=== PATIENT | male | born 1985 | race Caucasian/White ===

== ENCOUNTER 2016-10-15 19:26 | Emergency (ER) | payer MEDICAID ==
[2016-10-15] MEDS ORDERED: NS 1,000 ML IV ONE ×2 (19:51→20:17)
[2016-10-15] MEDS ORDERED: ONDANSETRON 4 MG/2 ML VIAL IVP ONE (19:51)
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
[2016-10-15] MEDS ORDERED: PANTOPRAZOLE SODIUM 40 MG in NS 100 ML IV ONE (19:58)
[2016-10-15] MEDS ORDERED: DIAZEPAM 10 MG/2 ML SYR IVP ONE ×2 (19:59→21:02)
[2016-10-15 20:12] LABS: % IMMATURE GRANULYOCYTES 0.3 % (0.0-1.1); ABSOLUTE IMMATURE GRANULOCYTES 0.04 10^3/uL (0.00-0.10); ADD DIFF? NO; ADD MORPH? NO; ADD SCAN? NO; ATYPICAL LYMPHOCYTE FLAG 0 (0-99); FRAGMENT RBC FLAG 0 (0-99); HEMATOCRIT 51.4 % (40.0-51.0); HEMOGLOBIN 18.5 g/dL (13.7-17.5); LEFT SHIFT FLG 0 (0-99); LIPEMIA HEMOLYSIS FLAG 90 (0-99); MEAN CELL HEMOGLOBIN 35.7 pg (27.9-34.1); MEAN CELL VOLUME 99.2 fL (81.5-99.8); MEAN PLATELET VOLUME 9.4 fL (8.7-11.7); PLATELET CLUMPS FLAG 0 (0-99); PLATELET COUNT 338 10^3/uL (150-400); RED BLOOD CELL COUNT 5.18 10^6/uL (4.40-6.38); RED CELL DISTRIBUTION WIDTH 11.2 % (11.5-15.2)
[2016-10-15 20:48] LABS: ANION GAP 16 mEq/L (8-16); CARBON DIOXIDE 28 mEq/l (22-31); CHLORIDE 96 mEq/L (97-110); CREATININE 0.7 mg/dL (0.7-1.3); GLOMERULAR FILTRATION RATE > 60; GLUCOSE 95 mg/dL (70-100); POTASSIUM 4.1 mEq/L (3.5-5.2); SODIUM 140 mEq/L (134-144)
[2016-10-15] MEDS ORDERED: DIAZEPAM 5 MG PREPACK#4 BTL TAKEHOME ONE (21:59)
[2016-10-15 22:14] VITALS: BP 167/104; PULSE 104; RESP 16; TEMP 98.6; O2SAT 97
== END 2016-10-15 22:14 | disposition home or self-care (01) ==
DX: F41.9 Anxiety disorder, unspecified (principal); K27.9 Peptic ulcer, site unspecified, unspecified as acute or chronic, without hemorrhage or perforation; K21.0 Gastro-esophageal reflux disease with esophagitis; F17.200 Nicotine dependence, unspecified, uncomplicated
CPT/HCPCS: 96374; J2405